=== PATIENT | female | born 1990 | race Caucasian/White ===

== ENCOUNTER 2017-04-20 00:42 | Emergency (ER) | payer OTHER ==
[2017-04-20 01:53] VITALS: BP 120/74
== END 2017-04-20 01:53 | disposition home or self-care (01) ==
LOC: ED 00:42
DX: L50.0 Allergic urticaria (principal); T36.0X5A Adverse effect of penicillins, initial encounter; Z79.899 Other long term (current) drug therapy; Y92.89 Other specified places as the place of occurrence of the external cause

== ENCOUNTER 2017-09-18 14:21 | Emergency (ER) | payer OTHER ==
[2017-09-18 15:51] LABS: microscopic required? NO
[2017-09-18 16:09] LABS: PLATELET COUNT 313 x10^3mcL (130-400); RED CELL DISTRIBUTION WIDTH 12.5 % (11.5-14.5)
[2017-09-18 16:10] LABS: urine erythrocyte NEGATIVE (NEGATIVE)
[2017-09-18 16:15] LABS: BASOPHIL % 2.7 % (0-2)
[2017-09-18 18:10] VITALS: BP 122/72
== END 2017-09-18 18:10 | disposition home or self-care (01) ==
LOC: ED 14:21
PROVIDERS: Emergency Medicine
DX: N83.202 Unspecified ovarian cyst, left side (principal)
CPT/HCPCS: 36415

== ENCOUNTER 2018-01-09 08:44 | Emergency (ER) | payer OTHER ==
[~2018-01-09] VITALS: Ht 162.6 cm; Wt 67.6 kg
[2018-01-09 08:50] VITALS: Ht 162.6 cm; Wt 67.6 kg
[2018-01-09 10:31] VITALS: BP 113/72
== END 2018-01-09 10:31 | disposition home or self-care (01) ==
LOC: ED 08:44
DX: L76.32 Postprocedural hematoma of skin and subcutaneous tissue following other procedure (principal)

== ENCOUNTER 2018-03-11 13:35 | Emergency (ER) | payer OTHER ==
[~2018-03-11] VITALS: Ht 160 cm; Wt 68.9 kg
[2018-03-11 13:39] VITALS: Ht 160 cm; Wt 68.9 kg
[2018-03-11 20:07] VITALS: BP 124/63
== END 2018-03-11 20:07 | disposition home or self-care (01) ==
LOC: ED 13:35
DX: R10.31 Right lower quadrant pain (principal)
CPT/HCPCS: J1885

== ENCOUNTER 2018-07-21 20:21 | Emergency (ER) | payer OTHER ==
[~2018-07-21] VITALS: Ht 160 cm; Wt 68.0 kg
[2018-07-21 20:22] VITALS: Ht 160 cm; Wt 68.0 kg
[2018-07-21 22:40] VITALS: BP 116/78
== END 2018-07-21 22:40 | disposition home or self-care (01) ==
LOC: ED 20:21
DX: N93.8 Other specified abnormal uterine and vaginal bleeding (principal); Z98.890 Other specified postprocedural states
CPT/HCPCS: 87491; 87591; Q0092

== ENCOUNTER 2019-04-03 17:59 | Emergency (ER) | payer OTHER ==
[~2019-04-03] VITALS: Ht 162.6 cm; Wt 71.2 kg
[2019-04-03 18:05] VITALS: Ht 162.6 cm; Wt 71.2 kg
[2019-04-03 19:56] VITALS: BP 120/82
== END 2019-04-03 19:56 | disposition home or self-care (01) ==
LOC: ED 17:59
DX: B37.9 Candidiasis, unspecified (principal); Z90.721 Acquired absence of ovaries, unilateral

== ENCOUNTER 2019-05-29 22:26 | Emergency (ER) | payer OTHER ==
[~2019-05-29] VITALS: Ht 162.6 cm; Wt 77.1 kg
[2019-05-29 22:35] VITALS: Ht 162.6 cm; Wt 77.1 kg
[2019-05-30 00:38] LABS: BASOPHIL % 0.6 % (0-2); PLATELET COUNT 290 x10^3mcL (130-400); RED CELL DISTRIBUTION WIDTH 13.3 % (11.5-14.5)
[2019-05-30 00:59] LABS: CALCIUM 8.1 mg/dL (8.5-10.1); CARBON DIOXIDE 26.8 mmol/L (21-32); CHLORIDE SERUM 109 mmol/L (98-107); CREATININE SERUM 0.6 mg/dL (0.6-1.0); GFR1 > 60 mL/min; GLUCOSE SERUM 103 mg/dL (74-106); SODIUM SERUM 144 mmol/L (136-145)
[2019-05-30 01:04] LABS: ALBUMIN 3.6 g/dL (3.4-5.0); ALKALINE PHOSPHATASE 86 U/L (46-116); ALT/SGPT 25 U/L (14-59); AST/SGOT 14 U/L (15-37); BILIRUBIN TOTAL 0.2 mg/dL (0.20-1.00); TOTAL PROTEIN, SERUM 7.5 g/dL (6.4-8.2)
[2019-05-30 01:18] VITALS: BP 116/79
== END 2019-05-30 01:18 | disposition home or self-care (01) ==
LOC: ED 22:26
PROVIDERS: Emergency Medicine
DX: H83.09 Labyrinthitis, unspecified ear (principal); Z98.890 Other specified postprocedural states
CPT/HCPCS: 36415; J8597; Q0162

== ENCOUNTER 2019-07-23 21:56 | Emergency (ER) | payer OTHER ==
[~2019-07-23] VITALS: Ht 157.5 cm; Wt 74.8 kg
[2019-07-23 22:08] VITALS: Ht 157.5 cm; Wt 74.8 kg
[2019-07-23 23:58] LABS: BASOPHIL % 0.7 % (0-2); PLATELET COUNT 315 x10^3mcL (130-400); RED CELL DISTRIBUTION WIDTH 13.1 % (11.5-14.5)
[2019-07-24 00:08] LABS: CARBON DIOXIDE 28.7 mmol/L (21-32); CHLORIDE SERUM 106 mmol/L (98-107); CREATININE SERUM 0.6 mg/dL (0.6-1.0); GFR1 > 60 mL/min; GLUCOSE SERUM 111 mg/dL (74-106); POTASSIUM SERUM 3.6 mmol/L (3.5-5.1); SODIUM SERUM 142 mmol/L (136-145)
[2019-07-24 00:13] LABS: ALBUMIN 3.9 g/dL (3.4-5.0); ALKALINE PHOSPHATASE 111 U/L (46-116); ALT/SGPT 32 U/L (14-59); AST/SGOT 11 U/L (15-37); BILIRUBIN TOTAL 0.1 mg/dL (0.20-1.00); TOTAL PROTEIN, SERUM 7.7 g/dL (6.4-8.2)
[2019-07-24 00:16] LABS: T3 TOTAL 1.58 ng/mL
[2019-07-24 00:23] LABS: FREE T4 0.95 ng/dL (0.76-1.46); FREE THYROXINE INDEX 2.6 ug/dL (1.4-4.5); T4(THYROXINE) 8.8 ug/dL (4.7-13.3)
[2019-07-24 01:06] VITALS: BP 130/60
== END 2019-07-24 00:55 | disposition home or self-care (01) ==
LOC: ED 21:56
PROVIDERS: Emergency Medicine
DX: R51 Headache (principal); K59.00 Constipation, unspecified; Z98.890 Other specified postprocedural states
CPT/HCPCS: 84439; J1885; J2765

== ENCOUNTER 2019-07-24 12:32 | Emergency (ER) | payer OTHER ==
[~2019-07-24] VITALS: Ht 157.5 cm; Wt 72.6 kg
[2019-07-24 12:37] VITALS: Ht 157.5 cm; Wt 72.6 kg
[2019-07-24 13:55] VITALS: BP 118/80
== END 2019-07-24 13:55 | disposition home or self-care (01) ==
LOC: ED 12:32
DX: K59.00 Constipation, unspecified (principal); K62.5 Hemorrhage of anus and rectum; Z98.890 Other specified postprocedural states

== ENCOUNTER 2020-06-19 17:34 | Emergency (ER) | payer OTHER, SELFPAY ==
[~2020-06-19] VITALS: Ht 160 cm; Wt 70.3 kg
[2020-06-19 17:36] VITALS: BP 133/83; Ht 160 cm; Wt 70.3 kg
== END 2020-06-19 18:12 | disposition home or self-care (01) ==
LOC: ED 17:34
DX: J02.9 Acute pharyngitis, unspecified (principal); Z20.828 Contact with and (suspected) exposure to other viral communicable diseases
CPT/HCPCS: U0003-CS

== ENCOUNTER 2020-08-19 17:01 | Emergency (ER) | payer OTHER, SELFPAY ==
[~2020-08-19] VITALS: Ht 160 cm; Wt 69.9 kg
[2020-08-19 17:04] VITALS: BP 123/91; Ht 160 cm; Wt 69.9 kg
== END 2020-08-19 18:17 | disposition home or self-care (01) ==
LOC: ED 17:01
DX: J02.9 Acute pharyngitis, unspecified (principal); R51.9 Headache, unspecified; M79.10 Myalgia, unspecified site; Z20.828 Contact with and (suspected) exposure to other viral communicable diseases; Z90.721 Acquired absence of ovaries, unilateral
CPT/HCPCS: U0003